=== PATIENT | male | born 1975 | race African-American/Black ===

== ENCOUNTER 2021-04-29 12:48 | Emergency (ER) | payer SELFPAY ==
[~2021-04-29] VITALS: Ht 180.3 cm; Wt 131.0 kg
[2021-04-29] MEDS ORDERED: CLINDAMYCIN300 M1 PO (13:28)
[2021-04-29] MEDS ORDERED: HYDROCO/APAP1 TA9 PO (13:40)
[2021-04-29 14:04] VITALS: BP 158/93
--- NOTE | 2021-05-01 12:29 | NUR ---
NEW RX FOR PENICILLIN VK 500MG PO Q6H X10 DAYS CALLED IN TO [facility]. CALLED PT LM.
== END 2021-04-29 14:14 | disposition home or self-care (01) | DRG 159 ==
LOC: ED 12:48
PROC: 0C96XZZ Drainage of Lower Gingiva, External Approach (ICD-10-PCS; principal; 2021-04-29)
DX: K04.7 Periapical abscess without sinus (principal); F17.210 Nicotine dependence, cigarettes, uncomplicated; B95.4 Other streptococcus as the cause of diseases classified elsewhere